=== PATIENT | female | born 1995 ===

== ENCOUNTER 2016-07-18 15:21 | Emergency (ER) | payer BC ==
[2016-07-18 15:41] VITALS: O2SAT 100
[2016-07-18] MEDS ORDERED: Sodium Chloride 0.9% 1,000 ML IV ONE (16:05)
[2016-07-18 16:41] LABS: BASO # 0.1 K/uL (0.0-0.2); BASO % 0.8 % (0.0-2.0); EOS # 0.1 K/uL (0.0-0.7); EOS % 1.1 % (0.0-4.0); HEMATOCRIT 45.6 % (34.0-47.0); LYMPH # 2.1 K/uL (1.0-4.3); MEAN CELL VOLUME 82.2 fL (81.0-99.0); MEAN CORPUSCULAR HEMOGLOBIN 27.8 pg (27.0-31.0); MEAN CORPUSCULAR HGB CONC 33.8 g/dL (33.0-37.0); MONO # 0.5 K/uL (0.0-0.8); MONO % 5.3 % (0.0-10.0); NRBC % 0.1 % (0.0-2.0); RED CELL DISTRIBUTION WIDTH 13.4 % (11.5-14.5); WHITE BLOOD COUNT 9.5 K/uL (4.8-10.8)
[2016-07-18 16:51] LABS: CHLORIDE 100 mmol/L (98-107); POTASSIUM 4.4 mmol/L (3.6-5.2); SODIUM 137 mmol/L (132-148)
[2016-07-18 16:53] LABS: ALKALINE PHOSPHATASE 101 U/L (38-126); AST/SGOT 31 U/L (14-36); CARBON DIOXIDE 26 mmol/L (22-30); GFR AFRICAN-AMERICAN > 60; INR 1.1; TOTAL PROTEIN 8.7 g/dL (6.3-8.3)
[2016-07-18 16:54] LABS: ALT/SGPT 29 U/L (9-52); BLOOD UREA NITROGEN 10 mg/dL (7-17); GLUCOSE,RANDOM 76 mg/dL (65-105)
--- NOTE | 2016-07-18 17:31 | C.PDOC ---
History Of Present Illness 21 y/o female that presents to the ED for evaluation of chills and non- productive cough, has not been feeling well since yesterday. Pt states she noticed blood streaked sputumwhile in the shower today. Pt also reports a brief episode of (pleuritic) chest pain yesterday. She denies shortness of breath, n/ v/d, dysuria/hematuria, palpitations. Time Seen by Provider: 07/18/16 15:42 Chief Complaint (Nursing): Cough, Cold, Congestion History Per: Patient History/Exam Limitations: no limitations Onset/Duration Of Symptoms: Days (1) Current Symptoms Are (Timing): Still Present Severity: Mild Associated Symptoms: Chills, Chest Pain (yesterday), Bloody Cough. denies: Sweating, Heart Racing, Leg/Calf Pain, Ankle/Leg Swelling, Dizziness, Light- headedness, Anxiety, Tingling In Hands Or Face, Musle Spasms In Hands Or Feet Recent travel outside of the [place]: No Additional History Per: Patient Past Medical History Reviewed: Historical Data, Nursing Documentation, Vital Signs Vital Signs: Last Vital Signs Temp 98.1 F 07/18/16 18:48 Pulse 86 07/18/16 18:48 Resp 20 07/18/16 18:48 BP 118/77 07/18/16 18:48 Pulse Ox 100 07/18/16 18:48 - Medical History PMH: Asthma Surgical History: Tonsillectomy Family History: States: No Known Family Hx - Social History Hx Alcohol Use: Yes Hx Substance Use: No - Immunization History Hx Tetanus Toxoid Vaccination: No Hx Influenza Vaccination: No Hx Pneumococcal Vaccination: No Review Of Systems Except As Marked, All Systems Reviewed And Found Negative. Constitutional: Positive for: Chills Cardiovascular: Positive for: Chest Pain. Negative for: Palpitations, Light Headedness Respiratory: Positive for: Cough, Hemoptysis, Sputum (blood streaked). Negative for: Shortness of Breath, SOB with Excertion, Wheezing Gastrointestinal: Negative for: Nausea, Vomiting, Abdominal Pain Genitourinary: Negative for: Dysuria Neurological: Negative for: Headache, Dizziness Physical Exam - Physical Exam Appears: Non-toxic, No Acute Distress, Other (anxious, speaking in full sentences) Skin: Normal Color, Warm, Dry, No Rash Head: Normacephalic Eye(s): bilateral: Normal Inspection Oral Mucosa: Moist Throat: Normal, No Erythema, No Exudate, No Drooling Neck: Normal, Normal ROM, Supple Cardiovascular: Rhythm Regular Respiratory: Normal Breath Sounds, No Rales, No Rhonchi, No Wheezing Gastrointestinal/Abdominal: Normal Exam, Bowel Sounds, Soft, No Tenderness Extremity: Normal ROM Neurological/Psych: Oriented x3 ED Course And Treatment - Laboratory Results Result Diagrams: 07/18/16 16:39 07/18/16 16:39 O2 Sat by Pulse Oximetry: 100 (on RA) Pulse Ox Interpretation: Normal - Radiology CXR: Interpreted by Me, Viewed By Me (no infiltrates/effusions) Progress Note: Blood work, CXR ordered and reviewed. Patient given IV NS bolus. Reevaluation Time: 18:30 Reassessment Condition: Improved (On reassessment, patient is resting comfortably, in no pain/distress. Blood work and CXR WNL. Patient discharged home with Rx for azithromycin, tessalon and instructed to follow up with PMD/ clinic in 1-2 days. She understands she should return to ED if her symptoms worsen.) Disposition Counseled Patient/Family Regarding: Studies Performed, Diagnosis, Need For Followup, Rx Given - Disposition Referrals: [facility] [Outside] Disposition: HOME/ ROUTINE Disposition Time: 18:30 Condition: STABLE Additional Instructions: FOLLOW UP YOUR DOCTOR/CLINIC IN 1-2 DAYS USE MEDICATIONS DIRECTED RETURN TO ER IF YOU HAVE WORSENING SYMPTOMS Prescriptions: Azithromycin [Zithromax] 250 mg PO DAILY #6 tab Benzonatate [Tessalon Perles] 100 mg PO BID PRN #15 sgl PRN Reason: Cough Instructions: Upper Respiratory Infection (ED) Print Language: LEBANESE - POA Present On Arrival: None - Clinical Impression Clinical Impression: Upper respiratory infection, Bronchitis, Blood-streaked sputum - Scribe Statement The provider has reviewed the documentation as recorded by the Clifford Lindo Provider Attestation: All medical record entries made by the Clifford were at my direction and personally dictated by me. I have reviewed the chart and agree that the record accurately reflects my personal performance of the history, physical exam, medical decision making, and the department course for this patient. I have also personally directed, reviewed, and agree with the discharge instructions and disposition.
[2016-07-18 17:56] LABS: ALB/GLOB RATIO 1.4 (1.0-2.1)
[2016-07-18 18:50] VITALS: BP 118/77; PULSE 86; RESP 20; TEMP 98.1
--- NOTE | 2016-07-19 07:28 | RAD ---
HISTORY: cough COMPARISON: No prior. TECHNIQUE: Chest PA and lateral FINDINGS: LUNGS: Mild venous congestion. Right hilar prominence. PLEURA: No significant pleural effusion identified. No pneumothorax apparent. CARDIOVASCULAR: Normal. OSSEOUS STRUCTURES: No significant abnormalities. VISUALIZED UPPER ABDOMEN: Normal. OTHER FINDINGS: None. IMPRESSION: Mild venous congestion. Right hilar prominence.
== END 2016-07-18 18:48 | disposition home or self-care (01) ==
LOC: MERGE 15:21 → C.ER 15:21
DX: J06.9 Acute upper respiratory infection, unspecified (principal); J40 Bronchitis, not specified as acute or chronic; R04.2 Hemoptysis
CPT/HCPCS: 71020; 80053; 85025; 85610; 85730; 96360; 99284; J7040